=== PATIENT | male | born 1975 | race Caucasian/White ===

== ENCOUNTER → 2016-10-22 | Outpatient (CLI) | payer OTHER ==
[~2016-10-22] MED LIST: FUROSEMIDE 40 MG/4 ML VIAL ONE
--- NOTE | 2016-10-22 15:04 | NM ---
Nuclear Medicine MAG3 Renal Flow and Lasix Renogram Clinical Indications: Left hydronephrosis, N13.39. Comparison Studies: Ultrasound September [address] October 2015. Technique: The patient received 10.7 mCi technetium 99m MAG3 intravenously, and posterior flow image s of the kidneys were acquired over one minute. This was followed by serial imaging of the kidneys a t 30-second intervals for 60 minutes. Intravenous Lasix (35.3 mg in 3.5 mL) was administered at 15 m inutes. Time activity curves were generated for early flow and also for the Lasix portion of the ana luisa dy. Prevoid and postvoid images of the abdomen were obtained as well. Flow Study Findings: Uptake by the normal right kidney is prompt and symmetrical, with no evidence o f renal arterial stenosis. Left kidney also demonstrates flow although asymmetrically diminished with out evidence of renal artery stenosis. Delayed Image/Lasix Washout Findings: Time-activity curves to the right kidney show normal diminutio n of activity, and prompt washout following diuretic administration. Left kidney demonstrates diminis hed function with activity only noted in the calyces and renal pelvis. No activity noted in the left ureter. Relative function to the right kidney 62% and left kidney 38%. Right kidney Tmax is 7.4 minut es and left 20.4 minutes. T1 half maximum to the right kidney is 13.2 minutes and left kidney is neve r obtained. At 20 minutes, percent activity to the right kidney is 45% and to the left kidney is 100% without excretion into the ureter. The time/activity slope to the right kidney is normal post Lasix. The time/activity slope to the left kidney continuously increases post Lasix consistent with mechani joaquina obstruction. Impressions 1. 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 2. Normal right kidney function and excretion with 62% relative function.
== END ==
LOC: FIMAGING 10:11
PROVIDERS: ATTEND Specialist
DX: N28.89 Other specified disorders of kidney and ureter (principal)
CPT/HCPCS: 78708; A9562

== ENCOUNTER → 2018-02-04 | Outpatient (CLI) | payer OTHER | LOC: FIMAGING 13:29 | DX: N13.5 Crossing vessel and stricture of ureter without hydronephrosis (principal) | CPT/HCPCS: 78708; A9562; J1940 ==

== ENCOUNTER 2018-02-16 01:07 | Emergency (ER) | payer OTHER ==
--- NOTE | 2018-02-16 01:16 | EDPHY ---
H & P Stated Complaint: back spasms no trauma Time Seen by Provider: 02/16/18 01:16 HPI/ROS: HPI CHIEF COMPLAINT: Left posterior rib pain. 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 He states started hurting him on Wednesday. It is worse when he laughs , distally worse when he takes deep breath in, distally worse when he moves his left arm or truncal axial movements. Especially when he goes and moves his left arm backwards. Pain is located left posterior lateral ribs reproducible on exam. Patient does not recall any injury. Current level pain /. This been going on since Wednesday. He did go see his chiropractor and had manipulation of this area initially felt better but now worse. Distally reports tried need healing. Distally reports stim used. Past Medical History: Hypertension Past Surgical History: Left UPJ obstruction requiring surgery. Social History: Denies drugs alcohol tobacco. Family History: Noncontributory ROS REVIEW OF SYSTEMS: A comprehensive 10 point review of systems is otherwise negative aside from elements mentioned in the history of present illness. Exam Constitutional appears well nontoxic no acute distress triage nursing summary reviewed, vital signs reviewed, awake/alert. Eyes normal conjunctivae and sclera, EOMI, PERRLA. HENT normal inspection, atraumatic, moist mucus membranes, no epistaxis, neck supple/ no meningismus, no raccoon eyes. Respiratory clear to auscultation bilaterally, normal breath sounds, no respiratory distress, no wheezing. Cardiovascular chest wall: Mild tender palpation over the left lateral posterior chest wall. Thoracic region. Reproducible on exam. Worse with deeper inspiration, movement of the left arm backwards, truncal axial movements , rate normal, regular rhythm, no murmur, no edema, distal pulses normal. Gastrointestinal soft, non-tender, no rebound, no guarding, normal bowel sounds, no distension, no pulsatile mass. Genitourinary no CVA tenderness. Musculoskeletal no midline vertebral tenderness, full range of motion, no calf swelling, no tenderness of extremities, no meningismus, good pulses, neurovascularly intact. Skin pink, warm, & dry, no rash, skin atraumatic. Neurologic awake, alert and oriented x 3, AAOx3, moves all 4 extremities equally, motor intact, sensory intact, CN II-XII intact, normal cerebellar, normal vision, normal speech. Psychiatric normal mood/affect. Heme/Lymph/Immune no lymphadenopathy. Differential Diagnosis: Includes but is not limited to in a particular order musculoskeletal strain, rib contusion, rib strain, nerve injury, rib fracture, pneumothorax, PE Medical Decision Making: Plan for this patient x-ray two view chest, IV establishment IV Dilaudid 1 mg for pain control, IV Zofran 4 mg for nausea, check basic blood work and re-evaluate. Re-evaluation: 0245: Patient re-evaluated at this time. He feels much better after 1 mg IV Dilaudid he is relaxing resting comfortably. His workup here in emergency room shows a negative D-dimer and normal troponin. His exam is consistent with musculoskeletal left lateral posterior thoracic back pain. Improved after IV Dilaudid. Patient is unable to take large amounts of NSAIDs or NSAIDs due to renal insufficiency from the previous UPJ obstruction. Will prescribe him a limited supply of [place]. Additionally limited supply of Valium. He understands take these together can make him very sleepy. He understands he should alternate these in only take them if he has significant pain. Additionally recommend return emergency room if his severe pain or not improving. He understands. Recommend ice, rest. Return precautions discussed he understands. Consistent exam with musculoskeletal back pain. Source: Patient - Personal History Current Tetanus/Diphtheria Vaccine: Unsure Current Tetanus Diphtheria and Acellular Pertussis (TDAP): Unsure - Medical/Surgical History Hx Asthma: Yes Hx Chronic Respiratory Disease: No Hx Diabetes: No Hx Cardiac Disease: No Hx Renal Disease: Yes Hx Cirrhosis: No Hx Alcoholism: No Hx HIV/AIDS: No Hx Splenectomy or Spleen Trauma: No Other PMH: appy, ortho surgeries, wrist surgery, abdominoplasty, kidney surgery - Social History Smoking Status: Never smoked Constitutional: Initial Vital Signs Temperature (C) 36.9 C 02/16/18 01:08 Heart Rate 98 02/16/18 01:08 Respiratory Rate 16 02/16/18 01:08 Blood Pressure 144/95 H 02/16/18 01:08 O2 Sat (%) 97 02/16/18 01:08 O2 Delivery Mode Room Air Allergies/Adverse Reactions: No Known Allergies Allergy (Verified 05/02/18 01:12) Home Medications: Medication Instructions Recorded Advair 250/50 (*) 1 puffs DAILY 11/03/15 Fluticasone Nasal 2 puffs EACHNARE BID 11/03/15 Hydrochlorothiazide 25 mg DAILY 11/03/15 Omeprazole 20 mg DAILY PRN 11/03/15 Quinapril HCl 2 tab DAILY 11/03/15 TESTOSTERONE 200 mg ONCE 11/03/15 Amlodipine Besylate 1 tab DAILY 04/02/17 Bupropion HCl 1 tab DAILY 04/02/17 Co Q-10 100 mg Softgel 1 cap DAILY 04/02/17 Fish Oil 1 tab DAILY 04/02/17 Herbals/Supplements -Info Only 1 tab DAILY 04/02/17 Pravastatin Sodium 1 tab HS 04/02/17 Probiotic 1 cap DAILY 04/02/17 VYVANSE 1 cap DAILY 04/02/17 Diazepam [Valium 5 MG (*)] 5 mg PO BID PRN #10 tab 02/16/18 Hydrocodone/APAP 5/325 [[place] 1 - 2 tab PO Q4H PRN #10 tab 02/16/18 5/325] Ibuprofen [Motrin (*)] 800 mg PO Q6-8PRN #10 tab 02/16/18 Medical Decision Making - Data Points Laboratory Results: Laboratory Results 02/16/18 01:30 02/16/18 01:30 02/16/18 02/16/18 02/16/18 01:30 01:30 01:30 WBC 9.08 10^3/uL 10^3/uL (3.80-9.50) RBC 5.70 10^6/uL 10^6/uL (4.40-6.38) Hgb 17.9 g/dL H g/dL (13.7-17.5) Hct 50.7 % % (40.0-51.0) MCV 88.9 fL fL (81.5-99.8) MCH 31.4 pg pg (27.9-34.1) MCHC 35.3 g/dL g/dL (32.4-36.7) RDW 13.6 % % (11.5-15.2) Plt Count 258 10^3/uL 10^3/uL (150-400) MPV 9.6 fL fL (8.7-11.7) Neut % (Auto) 50.7 % % (39.3-74.2) Lymph % (Auto) 39.2 % % (15.0-45.0) [place] % (Auto) 8.1 % % (4.5-13.0) Eos % (Auto) 1.0 % % (0.6-7.6) Baso % (Auto) 0.3 % % (0.3-1.7) Nucleat RBC Rel Count 0.0 % % (0.0-0.2) Absolute Neuts (auto) 4.60 10^3/uL 10^3/uL (1.70-6.50) Absolute Lymphs (auto) 3.56 10^3/uL H 10^3/uL (1.00-3.00) Absolute Monos (auto) 0.74 10^3/uL 10^3/uL (0.30-0.80) Absolute Eos (auto) 0.09 10^3/uL 10^3/uL (0.03-0.40) Absolute Basos (auto) 0.03 10^3/uL 10^3/uL (0.02-0.10) Absolute Nucleated RBC 0.00 10^3/uL 10^3/uL (0-0.01) Immature Gran % 0.7 % % (0.0-1.1) Immature Gran # 0.06 10^3/uL 10^3/uL (0.00-0.10) D-Dimer < 0.27 ug/mLFEU ug/mLFEU (0.00-0.50) Sodium 141 mEq/L mEq/L (135-145) Potassium 4.4 mEq/L mEq/L (3.5-5.2) Chloride 102 mEq/L mEq/L (97-110) Carbon Dioxide 23 mEq/l mEq/l (22-31) Anion Gap 16 mEq/L mEq/L (8-16) BUN 27 mg/dL H mg/dL (7-23) Creatinine 1.5 mg/dL H mg/dL (0.7-1.3) Estimated GFR 51 Glucose 122 mg/dL H mg/dL (70-100) Calcium 9.5 mg/dL mg/dL (8.5-10.4) Troponin I < 0.012 ng/mL ng/mL (0.000-0.034) Medications Given: Discontinued Medications Hydromorphone HCl (Dilaudid) 1 mg IVP EDNOW ONE Stop: 02/16/18 01:26 Last Admin: 02/16/18 01:33 Dose: 1 mg Sodium Chloride (Ns) 1,000 mls @ 0 mls/hr IV ONCE ONE PRN Reason: Wide Open Stop: 02/16/18 01:26 Last Admin: 02/16/18 01:31 Dose: 1,000 mls Ondansetron HCl (Zofran) 4 mg IVP EDNOW ONE Stop: 02/16/18 01:26 Last Admin: 02/16/18 01:33 Dose: 4 mg Departure - Departure Disposition: Home, Routine, Self-Care Clinical Impression: Back strain Qualifiers: Encounter type: initial encounter Qualified Code(s): S39.012A - Strain of muscle, fascia and tendon of lower back, initial encounter Condition: Good Instructions: Back Pain (ED) Additional Instructions: 1. Rest. 2. Take it easy. 3. Anti-inflammatory pain meds for mild pain 4. [place] for severe pain. 5. Recommend ice or heat whichever benefits you. Lidocaine patch fine. 6. Please be careful about taking [place] and Valium together. They can make you very sleepy. I only recommend you take the medications a alternating them. Additionally only take them if you're having significant pain. Referrals: Hal Calderón MD [Primary Care Provider] - As per Instructions Prescriptions: Diazepam [Valium 5 MG (*)] 5 mg PO BID PRN #10 tab PRN Reason: Spasms Hydrocodone/APAP 5/325 [[place] 5/325] 1 - 2 tab PO Q4H PRN #10 tab PRN Reason: Pain, Moderate Ibuprofen [Motrin (*)] 800 mg PO Q6-8PRN #10 tab
[2018-02-16] MEDS ORDERED: HYDROmorphONE/DILAUDID 2 MG/ML INJ IVP ONE ×2 (01:25→02:44)
[2018-02-16] MEDS ORDERED: NS 1,000 ML IV ONE (01:25)
[2018-02-16] MEDS ORDERED: ONDANSETRON 4 MG/2 ML VIAL IVP ONE (01:25)
[2018-02-16 01:42] LABS: PLATELET COUNT 258 10^3/uL (150-400)
--- NOTE | 2018-02-16 03:00 | CPEKG ---
Heart Rate: 95 RR Interval: 632 P-R Interval: 180 QRSD Interval: 92 QT Interval: 344 QTC Interval: 433 P Buckner: 44 QRS Buckner: -3 T Wave Buckner: -52 EKG Severity - ABNORMAL ECG - EKG Impression: SINUS RHYTHM EKG Impression: PROBABLE INFERIOR INFARCT, AGE INDETERMINATE Electronically Signed By: Dami Abad 16-Feb-2018 07:18:10
[2018-02-16 03:37] VITALS: BP 127/93
== END 2018-02-16 03:36 | disposition home or self-care (01) ==
DX: S39.012A Strain of muscle, fascia and tendon of lower back, initial encounter (principal); I10 Essential (primary) hypertension; J45.909 Unspecified asthma, uncomplicated; X50.9XXA Other and unspecified overexertion or strenuous movements or postures, initial encounter; Y99.8 Other external cause status; Y93.89 Activity, other specified
CPT/HCPCS: 96374; J1170; J2405

== ENCOUNTER 2019-04-10 09:23 | Observation (INO) | payer OTHER | END 2019-04-12 14:41 | disposition home or self-care (01) | LOC: F2W 13:06 ==